=== PATIENT | female | born 1935 | race Caucasian/White ===

== ENCOUNTER → 2016-08-05 | Outpatient (CLI) | payer MEDICARE ==
[~2016-08-05] MED LIST: ACETAMINOPHEN PO; ALPRAZOLAM PO; AXID AR75 MG PO; CIPRO PO; FLAGYL PO
--- NOTE | ~2016-08-05 | BD1 ---
[facility] A Service of [facility] & [facility] RADIOLOGY TEXT RESULTS PATIENT: MANUEL HENSLEY LOCATION: [facility] : 35 UNIT #: [id number] AGE: [address]: Jerzy David MD SEX: F ORDER DR: [id number] [facility] [address] [place], [place] [address] [id number] O MR#: [id number] Acc #: [id number] NAME: MANUEL HENSLEY : 1935 SEX: F STUDY DATE/TIME: 08/05/2016 11:58 UNIT: [facility] ROOM: STUDY DESCRIPTION: BD Dexa Bone Dens 1+ Site Attending Physician: Jerzy David M.D. Ordering Physician: Jerzy David M.D. Primary Care Physician: Jerzy David M.D. MEDICAL IMAGING REPORT This report is preliminary unless electronic signature is present EXAM Bone density spine, hip, 08/05/2016. HISTORY Screening. Smoker 69 years. Current smoker. FINDINGS Bone density scanning performed upper 4 lumbar vertebral segments and proximal left femur in 81-year-old, 158-pound, female. L1-L4: Bone mineral density 1.156 g/cm2 for a T-score 1 standard deviation above mean for reference population of normal young individuals and Z-score 3.7 standard deviations above the mean for age-matched population. Proximal left femur: Total bone mineral density 0.657 g/cm2 for a T-score 2.3 standard deviations below mean for a reference population of normal young individuals and Z-score 0.2 standard deviations below mean for age-matched population. Left femoral neck bone mineral density 0.647 g/cm2 for T-score 1.8 standard deviations below mean for reference population of normal young individuals and Z-score 0.5 standard deviations above the mean for age-matched population. IMPRESSION Osteopenia in the proximal left femur overall. The patient is felt to be at increased risk for fracture. Treatment options may be considered. Continued surveillance is recommended. Dictated by... Félix Tran M.D. THIS IS AN ELECTRONICALLY VERIFIED REPORT Félix Tran M.D. at 08/06/2016 2:18 PM JEMAL/[facility] A Service of [facility] & [facility] RADIOLOGY TEXT RESULTS PATIENT: MANUEL HENSLEY LOCATION: [facility] : 35 UNIT #: [id number] AGE: [address]: Jerzy David MD SEX: F ORDER DR: TD: 08/06/2016 09:35 JOB #: [id number] MEDICAL IMAGING REPORT Page 1 of 1 COPY
--- NOTE | ~2016-08-05 | MY11 ---
[facility] A Service of [facility] RADIOLOGY TEXT RESULTS PATIENT: MANUEL HENSLEY LOCATION: [facility] : 35 UNIT #: [id number] AGE: [address]: Jerzy David MD SEX: F ORDER DR: [id number] [facility] [address] [place], [place] [address] [id number] O MR#: [id number] Acc #: [id number] NAME: MANUEL HENSLEY : 1935 SEX: F STUDY DATE/TIME: 08/05/2016 12:08 UNIT: [facility] ROOM: STUDY DESCRIPTION: MY Mammogram Screening Dig Tim Attending Physician: Jerzy David M.D. Ordering Physician: Jerzy David M.D. Primary Care Physician: Jerzy David M.D. MEDICAL IMAGING REPORT This report is preliminary unless electronic signature is present EXAM Digital screening mammogram, 08/05/2016 HISTORY 81-year-old woman with no family history or risk elevation. Annual screen. COMPARISON 06/29/2015. FINDINGS Digital imaging of each breast was completed utilizing screening protocol. Review includes FDA-approved CAD device. Breast parenchyma is fatty replaced with subareolar duct prominence noted in each breast. Occasional benign calcification bilaterally is stable. There is no interval occurring breast mass. There are no suspicious microcalcifications and no architectural deformity. IMPRESSION Negative mammogram. Annual screening is optional at this age. Patients over the age of 40 are entered into a reminder system with target due date for the next mammogram. A result letter will also be sent to the patient. BIRADS: 1 Negative Dictated by... Ramírez South M.D. THIS IS AN ELECTRONICALLY VERIFIED REPORT Ramírez South M.D. at 08/06/2016 8:06 AM [facility] A Service of [facility] & [facility] RADIOLOGY TEXT RESULTS PATIENT: MANUEL HENSLEY LOCATION: [facility] : 35 UNIT #: [id number] AGE: [address]: Jerzy David MD SEX: F ORDER DR: CAROL[place]/gumaro TD: 08/05/2016 19:13 JOB #: [id number] MEDICAL IMAGING REPORT Page 1 of 1 COPY
== END | disposition home or self-care (01) ==
LOC: CWCC 11:19
DX: Z13.820 Encounter for screening for osteoporosis (principal); Z12.31 Encounter for screening mammogram for malignant neoplasm of breast; M85.88 Other specified disorders of bone density and structure, other site
CPT/HCPCS: 77080; G0202